=== PATIENT | male | born 1965 | race Caucasian/White ===

== ENCOUNTER 2016-10-23 17:56 | Emergency (ER) | payer MEDICARE, MEDICAID ==
[~2016-10-23] VITALS: Ht 172.7 cm; Wt 96.6 kg
[~2016-10-23 17:56] MED LIST changes: -MIDAZOLAM HCL 1MG/1ML-2 ML VIAL ONE; -MORPHINE SULF INJ 2 MG/ML SYRINGE 1ML IV PRN; -ONDANSETRON HCL 4 MG/2 ML VIAL IV ONE; -PROPOFOL 10 MG/ML 20 ML IV ONE; -ceFAZolin 1GM/50ML D5W 50 ML IV ONE; -ePHEDrine SULFATE 50 MG/ML AMP IV PRN; -fentaNYL CITRATE 100 MCG/2 ML VL IV ONE; -fentaNYL CITRATE 100 MCG/2 ML VL ONE; -hydrALAZINE HCL 20 MG/ML VL IV PRN
[2016-10-23] MEDS ORDERED: MORPHINE SULFATE 4 MG/ML SYRG IV ONE (23:45)
[2016-10-23] MEDS ORDERED: ONDANSETRON HCL 4 MG/2 ML VIAL IV ONE (23:45)
[2016-10-24 02:08] VITALS: BP 114/72
== END 2016-10-24 03:51 | disposition home or self-care (01) ==
LOC: ER 18:00
DX: N18.6 End stage renal disease (principal); R31.9 Hematuria, unspecified; Z99.2 Dependence on renal dialysis; D63.1 Anemia in chronic kidney disease; Z98.890 Other specified postprocedural states; Z79.899 Other long term (current) drug therapy
CPT/HCPCS: 51702; 74176; 96374; 96375; 99284; J2270; J2405

== ENCOUNTER → 2016-10-23 | Day surgery (SDC) | payer MEDICARE, MEDICAID ==
[2016-10-21 16:52] LABS: Potassium 3.7 mmol/L (3.5-5.1)
[2016-10-21 16:58] LABS: Urine Bilirubin Negative (Negative); Urine Blood 2+ /uL (Negative); Urine Color Yellow (Yellow); Urine Glucose TRACE mg/dL (Normal); Urine Ketone Negative (Negative); Urine Nitrite Negative (Negative); Urine RBC 23 /hpf (0 - 3); Urine Urobilinogen Normal (Negative); Urine WBC Clumps PRESENT /hpf (None Seen)
[2016-10-21 16:59] LABS: Basophils # (auto) 0 uL; Basophils % (auto) 0.7 % (0.0-2.0); CONDITION Y; Eosinophils # (auto) 0.2 uL; Eosinophils % (auto) 4.1 % (0.0-7.0); Hematocrit 35.7 % (41.0-53.0); Hemoglobin 11.9 g/dL (13.5-17.5); Lymphocytes # (auto) 1.3 uL; Lymphocytes % (auto) 21.8 % (10.0-50.0); Mean Corpuscular Hemoglobin 30.4 pg (28.0-32.0); Mean Corpuscular Hgb Conc. 33.2 g/dL (32.0-36.0); Mean Corpuscular Volume 91.4 fL (80.0-100.0); Mean Platelet Volume 8.6 fL (7.4-10.4); Monocytes # (auto) 0.6 uL; Monocytes % (auto) 10.8 % (0.0-12.0); Neutrophils # (auto) 3.7 uL; Neutrophils % (auto) 62.6 % (37.0-80.0); Platelet Count (auto) 300 10^3/uL (140-450); Red Cell Distribution Width 14.1 % (11.6-16.0); White Blood Cell 5.9 10^3/uL (4.4-10.8)
[2016-10-21 17:03] LABS: Albumin 2.9 g/dL (3.4-5.0); BUN/Creatinine Ratio 3.4; Bilirubin, Total 0.2 mg/dL (0.2-1.0); INR 0.98 (0.9-1.15); Partial Thromboplastin Time 27.1 sec (22.64-33.71); Prothrombin Time 10.7 sec (9.37-12.3)
[~2016-10-23] VITALS: Ht 172.7 cm; Wt 90.7 kg
[~2016-10-23] MED LIST: ALPR0.25 PO; BENA20TA14 PO; CAL025T PO; CALC-460 PO; CARI-277 PO; DIPH2.5T73 PO; FERR1TAB17 PO; HYDR-4663 PO; MIDAZOLAM HCL 1MG/1ML-2 ML VIAL ONE; MORPHINE SULF INJ 2 MG/ML SYRINGE 1ML IV PRN; ONDANSETRON HCL 4 MG/2 ML VIAL IV ONE; PROPOFOL 10 MG/ML 20 ML IV ONE; SODB650T PO; TAM04C PO; ceFAZolin 1GM/50ML D5W 50 ML IV ONE; ePHEDrine SULFATE 50 MG/ML AMP IV PRN; fentaNYL CITRATE 100 MCG/2 ML VL IV ONE; fentaNYL CITRATE 100 MCG/2 ML VL ONE; hydrALAZINE HCL 20 MG/ML VL IV PRN
[2016-10-23 11:10] VITALS: BP 122/81
== END | disposition home or self-care (01) ==
LOC: SUR 07:10
PROVIDERS: ATTEND Urology
DX: N40.1 Benign prostatic hyperplasia with lower urinary tract symptoms (principal); Z98.84 Bariatric surgery status; E89.0 Postprocedural hypothyroidism; J44.9 Chronic obstructive pulmonary disease, unspecified; E11.22 Type 2 diabetes mellitus with diabetic chronic kidney disease; I12.0 Hypertensive chronic kidney disease with stage 5 chronic kidney disease or end stage renal disease; N18.6 End stage renal disease; Z99.2 Dependence on renal dialysis
CPT/HCPCS: 36415; 52649; 80053; 81001; 85025; 85610; 85730; 87086; J0690; J2250; J2704; J3010